=== PATIENT | female | born 2005 | race Caucasian/White ===

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

== ENCOUNTER 2023-04-17 04:20 | Emergency (ER) | payer OTHER ==
[~2023-04-17] VITALS: Ht 175.3 cm; Wt 59.0 kg
[2023-04-17] MEDS ORDERED: SERT25 PO (04:57)
[2023-04-17 05:36] LABS: BASOPHILS ABSOLUTE AUTO 0.08 K/mm3 (0.00-0.23); BASOPHILS PERCENT AUTO 1 % (0-2); EOSINOPHILS ABSOLUTE AUTO 0.06 K/mm3 (0.00-0.68); EOSINOPHILS PERCENT AUTO 1 % (0-6); Hematocrit 36.4 % (33.0-51.0); Hemoglobin 11.8 g/dL (11.5-16.0); IMMATURE GRAN ABSOLUTE AUTO 0.03 K/mm3 (0.00-0.10); IMMATURE GRAN PERCENT AUTO 0 % (0-1); LYMPHOCYTES PERCENT AUTO 11 % (21-46); MONOCYTES ABSOLUTE AUTO 0.68 K/mm3 (0.16-1.47); MONOCYTES PERCENT AUTO 6 % (4-13); Mean Corpuscular HGB 28.2 pg (26.0-34.0); Mean Corpuscular HGB Conc 32.4 g/dL (31.5-36.5); Mean Corpuscular Volume 87 fL (80-100); Mean Platelet Volume 11.9 fL (9.1-12.4); NEUTROPHILS ABSOLUTE AUTO 9.63 K/mm3 (1.96-9.15); NEUTROPHILS PERCENT AUTO 82 % (41-73); Platelet Count 186 K/mm3 (150-400); RDW Standard Deviation 47.6 fL (35.1-46.3); Red Blood Cell Count 4.19 M/mm3 (3.80-5.20); White Blood Cell Count 11.78 K/mm3 (4.00-11.30)
[2023-04-17 06:01] LABS: Thyroid Stimulating Hormone 1.2 uIU/mL (0.360-4.800)
[2023-04-17 06:03] LABS: Bun/Creatinine Ratio 22.9 (12.0-20.0); Calcium, Blood 8.4 mg/dL (8.5-10.1); Creatinine, Blood 0.53 mg/dL (0.40-1.00); Potassium, Blood 4.9 mmol/L (3.5-5.5)
[2023-04-17 06:09] LABS: Influenza A, PCR NEGATIVE (NEGATIVE); Influenza B, PCR NEGATIVE (NEGATIVE); Resp Syncytial Virus, PCR NEGATIVE (NEGATIVE); SARS-Cov-2 (COVID-19) PCR, MMC NEGATIVE (NEGATIVE)
[2023-04-17 06:57] LABS: Source, Urine Clean Catch
[2023-04-17 07:11] LABS: Appearance, Urine Clear (Clear); Bilirubin, Urine Neg (Neg); Blood, Urine 4+ (Neg); Color, Urine Yellow (P-Yellow); Glucose Qualitative, Urine Neg (Neg); Ketones, Urine 1+ (Neg); Leukocyte Esterase, Urine Neg (Neg); Nitrite, Urine Neg (Neg); Protein, Urine Neg (Neg); Urobilinogen, Urine NORM (Normal)
[2023-04-17] MEDS ORDERED: TRAM50 PO (07:30)
[2023-04-17 07:31] LABS: U Amphetamine Screen Not Detected; U Barbituate Screen Not Detected; U Benzodiazapine Screen Not Detected; U Buprenorphine Screen Not Detected; U Cannabinoids Screen DETECTED; U Cocaine Screen Not Detected; U Methadone Screen Not Detected; U Methamphetamine Screen Not Detected; U Opiates Screen Not Detected; U Oxycodone Screen Not Detected; U Phencyclidine Screen Not Detected; U Propoxyphene Screen Not Detected
[2023-04-17 07:34] LABS: Bacteria Few /hpf; Mucus Light (0-Heavy); Squamous Epithelial Cells Rare /hpf (Few)
[2023-04-17] MEDS ORDERED: ONDA4ODT MM (08:35)
[2023-04-17 09:30] VITALS: BP 113/71
== END 2023-04-17 09:59 | disposition home or self-care (01) ==
LOC: ER 04:20
PROVIDERS: Emergency Medicine
DX: R11.2 Nausea with vomiting, unspecified (principal); F12.90 Cannabis use, unspecified, uncomplicated; E86.0 Dehydration; Z79.899 Other long term (current) drug therapy
CPT/HCPCS: 0241U; 80048; 81001; 82550; 84443; 84703; 85025; 93005; 93010; 96361; 96374; 96375; 99285-25; J0780; J1200; J7030

== ENCOUNTER 2024-09-06 21:34 | Observation (INO) | payer OTHER ==
[~2024-09-06] VITALS: Ht 172.7 cm; Wt 61.2 kg
[~2024-09-06 21:34] MED LIST changes: +SERT25 PO; +TRAM50 PO
[2024-09-06] MEDS ORDERED: Ziprasidone Mesylate 20 MG / Vial IM ONE (22:20)
[2024-09-06 23:09] LABS: BASOPHILS ABSOLUTE AUTO 0.09 K/mm3 (0.00-0.23); BASOPHILS PERCENT AUTO 1 % (0-2); EOSINOPHILS ABSOLUTE AUTO 0.36 K/mm3 (0.00-0.68); EOSINOPHILS PERCENT AUTO 4 % (0-6); Hematocrit 37.8 % (33.0-51.0); Hemoglobin 12.9 g/dL (11.5-16.0); IMMATURE GRAN ABSOLUTE AUTO 0.02 K/mm3 (0.00-0.10); IMMATURE GRAN PERCENT AUTO 0 % (0-1); LYMPHOCYTES ABSOLUTE AUTO 2.69 K/mm3 (0.84-5.20); LYMPHOCYTES PERCENT AUTO 26 % (21-46); MONOCYTES ABSOLUTE AUTO 1.04 K/mm3 (0.16-1.47); MONOCYTES PERCENT AUTO 10 % (4-13); Mean Corpuscular HGB 29.8 pg (26.0-34.0); Mean Corpuscular HGB Conc 34.1 g/dL (31.5-36.5); Mean Corpuscular Volume 87 fL (80-100); Mean Platelet Volume 10.5 fL (9.1-12.4); NEUTROPHILS ABSOLUTE AUTO 6.09 K/mm3 (1.96-9.15); NEUTROPHILS PERCENT AUTO 59 % (41-73); Platelet Count 207 K/mm3 (150-400); RDW Coefficient Variation 12.5 % (11.7-14.2); RDW Standard Deviation 40.1 fL (35.1-46.3); Red Blood Cell Count 4.33 M/mm3 (3.80-5.20); White Blood Cell Count 10.29 K/mm3 (4.00-11.30)
[2024-09-06] MEDS ORDERED: OLANZapine ODT 5 MG Tab PO ONE (23:15)
[2024-09-06 23:18] LABS: Source, Urine Clean Catch
[2024-09-06 23:24] LABS: Bilirubin, Urine Neg (Neg); Blood, Urine Neg (Neg); Glucose Qualitative, Urine Neg (Neg); Ketones, Urine 1+ (Neg); Leukocyte Esterase, Urine Neg (Neg); Nitrite, Urine Neg (Neg); Protein, Urine 1+ (Neg); Specific Gravity, Urine 1.015 (1.003-1.022); Urobilinogen, Urine 1+ (Normal)
[2024-09-06 23:29] LABS: Salicylate <1.7 mg/dL (2.8-20.0)
[2024-09-06 23:30] LABS: Acetaminophen, Random <2.0 ug/mL (10.0-30.0); Alanine Aminotransfer (ALT/SGP 17 U/L (12-78); Albumin, Blood 4.4 g/dL (3.4-5.0); Albumin/Globulin Ratio 1.4 (0.8-1.8); Alk Phos 78 U/L (50-136); Anion Gap 10 mmol/L (3-11); Aspartate Aminotrans (AST/SGOT 18 U/L (12-37); Bilirubin, Total 1.4 mg/dL (0.1-1.0); Blood Urea Nitrogen 13 mg/dL (8-24); Bun/Creatinine Ratio 16.8 (12.0-20.0); CO2, Blood 24 mmol/L (21-32); Calcium, Blood 9.3 mg/dL (8.5-10.1); Chloride, Blood 107 mmol/L (98-108); Creatinine, Blood 0.78 mg/dL (0.40-1.00); Ethanol (Alcohol), Blood, Med <3 mg/dL; Globulin, Blood 3.2 g/dL (2.2-4.0); Glomerular Filtration Rate 111 (60-); Glucose, Blood 92 mg/dL (70-99); Sodium, Blood 138 mmol/L (136-145); Total Protein, Blood 7.6 g/dL (6.4-8.2)
[2024-09-06 23:42] LABS: Appearance, Urine Clear (Clear); Color, Urine Yellow (P-Yellow)
[2024-09-06 23:44] LABS: U Amphetamine Screen Not Detected; U Barbituate Screen Not Detected; U Benzodiazapine Screen Not Detected; U Buprenorphine Screen Not Detected; U Cannabinoids Screen DETECTED; U Cocaine Screen Not Detected; U Methadone Screen Not Detected; U Methamphetamine Screen Not Detected; U Opiates Screen Not Detected; U Oxycodone Screen Not Detected; U Phencyclidine Screen Not Detected
[2024-09-06] MEDS ORDERED: ZOLOFT50 MG PO (23:44)
[2024-09-07 12:00] VITALS: BP 140/86
== END 2024-09-07 12:20 | disposition other institution (70) ==
LOC: ER 21:34 → EOR 21:35
PROVIDERS: ADMIT Emergency Medicine
DX: F33.2 Major depressive disorder, recurrent severe without psychotic features (principal); R45.851 Suicidal ideations; F17.290 Nicotine dependence, other tobacco product, uncomplicated; Z79.899 Other long term (current) drug therapy
CPT/HCPCS: 80053; 80320; 81025; 85025; 93005; 93010; 99285-25; A9270; G0378; G0480; J3486

== ENCOUNTER 2024-09-07 09:32 | Inpatient (IN) | payer OTHER ==
[~2024-09-07] VITALS: Ht 172.7 cm; Wt 56.7 kg
[~2024-09-07 09:32] MED LIST changes: +ZOLOFT50 MG PO
[2024-09-07] MEDS ORDERED: Polyethylene Glycol 3350 17 gm PO PRN (10:55)
[2024-09-07] MEDS ORDERED: Aluminum Hydroxide 320MG/5ML 473 ML PO PRN (11:00)
[2024-09-07] MEDS ORDERED: Calcium Carbonate 500 MG Tab Chew PO PRN (11:00)
[2024-09-07] MEDS ORDERED: Ibuprofen 600 MG Tab PO PRN (11:00)
[2024-09-07] MEDS ORDERED: Acetaminophen 325 MG TABLET PO PRN (11:00)
[2024-09-07] MEDS ORDERED: TraZODone HCl 50 MG Tab PO PRN (11:00)
[2024-09-07] MEDS ORDERED: HydrOXYzine Pamoate 50 MG Cap PO PRN (11:00)
[2024-09-07] MEDS ORDERED: OLANZapine ODT 10 MG Tab MM PRN (11:00)
[2024-09-07] MEDS ORDERED: Melatonin 3 MG Tab PO PRN (11:00)
[2024-09-07] MEDS ORDERED: Ondansetron 4 MG SoluTab MM PRN (11:10)
[2024-09-07 12:40] VITALS: BP 114/81
[2024-09-07 13:05] VITALS: BP 114/81
--- NOTE | 2024-09-07 14:39 | NUR ---
ADMISSION NOTE: REPORT TAKEN FROM BONIFACIO RN/ER. SHE WAS BROUGHT INTO THE ER WITH SI, IT WAS REPORTED THAT SHE HAD A PLAN OF CRASHING HER CAR INTO A DITCH (WHICH SHE DENIED DURING ADMISSION INTERVIEW). 12:24 PT WAS ADMITTED TO [facility] FROM [facility] ER SHE REPORTED "I HAVE DEPRESSION, BORDERLINE PERSONALITY DISORDER." HER GRANDMOTHER SAID THAT PT, "HAS A OVARIAN CYST WHICH SHE FEELS SOMETIMES AFFECTS HER EMOTIONS AROUND HER PERIOD TIME." PT BECAME VERY TEARFUL REGARDING THE 5 DAY HOLD. "THEY SAID IT WAS A 3 DAY HOLD." SHE WAS ADVISED THAT HER HOLD WILL BE UP WEDNESDAY, SEPTEMBER 11, 2024 AT 17:00. SHE IS PRESENTLY RESTING IN BED.
--- NOTE | 2024-09-07 18:07 | NUR ---
PT ATE HER DINER IN THE VISITOR ROOM AND VISITED WITH HER GRANDMA AND HER AUNT. SHE WAS GLAD TO SEE THEM AND FOR THE VISIT BUT IS STILL TEARFUL REGARDING THE 5 DAY HOLD. SHE IS RESTING ON HER BED.
[2024-09-07 20:34] VITALS: BP 116/79
[2024-09-07] MEDS ORDERED: ARIPiprazole 5 MG Tab PO SCH (21:00)
--- NOTE | 2024-09-07 22:49 | NUR ---
UPDATE HOSPITALIST BONIFACIO NOTIFIED D/T PT'S POTASSIUM OF 3.O, W/ NO NEW ORDERS. DR VAZQUEZ CALLED NOTIFYING CHARGE FOR LAB DRAW BY MIDNIGHT. NO OTHER ORDERS AT THIS TIME.
[2024-09-07 23:46] LABS: Anion Gap 11 mmol/L (3-11); Blood Urea Nitrogen 14 mg/dL (8-24); Bun/Creatinine Ratio 19.6 (12.0-20.0); CHOL/HDL RATIO 2.2; CO2, Blood 24 mmol/L (21-32); Calcium, Blood 9.2 mg/dL (8.5-10.1); Chloride, Blood 107 mmol/L (98-108); Cholesterol 109 mg/dL (50-200); Creatinine, Blood 0.71 mg/dL (0.40-1.00); Glomerular Filtration Rate 125 (60-); Glucose, Blood 78 mg/dL (70-99); HDL Cholesterol 49 mg/dL (>39); LDL/HDL RATIO 1.1; Low Density Lipoprotein Chol 53 mg/dL (0-110); Magnesium, Blood 2.2 mg/dL (1.6-2.4); Potassium, Blood 3.8 mmol/L (3.5-5.5); Sodium, Blood 138 mmol/L (136-145); Thyroid Stimulating Hormone 0.524 uIU/mL (0.360-4.800); Triglycerides 36 mg/dL (30-140); Very Low Density Lipoprot Chol 7 mg/dL (6-28)
--- NOTE | 2024-09-08 05:28 | NUR ---
SHIFT SUMMARY PT RESTED IN BED/SLEPT T/O WHOLE SHIFT. AT START OF SHIFT PT DECLINED GOING TO SNACK. PT DENIED SI, HI, AVTH. POTASSIUM NOTED TO BE 3.0 AND WAS NOT ABLE TO FIND ANY POTTASIUM REPLACEMENT ORDERED SO DR ZAMARRIPA NOTIFIED/HOSPITALIST NOTIFIED (SEE PREVIOUS NOTE). NO ACUTE EVENTS OVERNIGHT.
--- NOTE | 2024-09-08 07:54 | NUR ---
SHIFT ASSESSMENT: PT REPORTED THAT SHE VOMITED THIS MORNING...ZOFRAN ODT 4MG GIVEN. SHE DENIED SI, HI AND AVH. PT REPORTED FEELING "OK" ABOUT THE DAY. AFFECT WAS EUTHYMIC. SHE IS PRESENTLY RESTING IN BED WITH 15 MINUTE OBSERVATIONS.
[2024-09-08 08:11] VITALS: BP 113/59
[2024-09-08] MEDS ORDERED: Sertraline HCl 100 MG Tab PO SCH (09:00)
[2024-09-08] MEDS ORDERED: Multivitamins 1 Tab PO SCH (09:00)
[2024-09-08 13:28] VITALS: BP 131/91
--- NOTE | 2024-09-08 14:00 | NUR ---
PT ATTENDED GROUPS AND REPORTED THAT THE NAUSEA WAS RESOLVED, THEN AT 1221 SHE BEGAN VOMITING AGAIN AND WAS GIVEN ZOFRAN 4MG WHICH SHE IMMEDIATELY THRW UP. VS B/P1, PULSE 86, TEMP 98.4, BIOX 100%. ZOFRAN 4MG GIVEN AT 1339 WITH GOOD RESULTS SO FAR.
--- NOTE | 2024-09-08 17:15 | NUR ---
PATIENT CONTINUES TO HAVE INTERMITTENT VOMITTING AND HEAVING WITH STOMACH ACID. THE PATIENT DENIES ANY DRUG USE, EXCEPT FOR THC AT HOME. PATIENTS VITAL SIGNS ARE STABLE AND WITHIN NORMAL LIMITS. (SEE VS). BS X4Q. ALTHOUGH SLOWER THAN EXPECTED WITH THE NAUSEA. PAIN IS PRESENT IN THE MID ABDOMIN, DESCRIBED SHARP AND POSSIBLY RADIATING SOMEWHAT. PATIENT WAS GIVEN A DOSE OF 4MG ZOFRAN ODT AT APPROX 1715, BEFORE DINNER TRAYS RECOMMENDED BY DR. FRANCIS. A DINNER TRAY WAS ORDERED WITH REQUESTED SPRITE. PATIENT IS CURRENTLY LYING IN HER ROOM, RESTING AND DOES PLAN TO TRY TO DRINK AND EAT A LITTLE.
--- NOTE | 2024-09-08 18:02 | NUR ---
PT SOILED HERSELF WHILE VOMITING WHILE VISITING WITH HER GRANDMA AND AUNT. THIS CLERICAL CLERK TOOK HER TO HER ROOM AND STAYED WITH HER WHILE SHE SHOWERED DUE TO "WEAKNESS." BEFORE HER SHOWER SHE HAD SEVERAL MORE DIARRHEA EPISODES. SHE SHOWERED AND IS NOW RESTING IN BED. HER SKIN IS PALE.
[2024-09-08] MEDS ORDERED: Prochlorperazine Maleate 5 MG Tab PO PRN (18:05)
--- NOTE | 2024-09-08 18:42 | NUR ---
After patient had taken her last Zofran, she continued to have N&V, She soiled her pants with BM during the visit with her Grandma. Provider was notoified and new orders were given. DC Zofran, and start Compazine 10 mg PO [id number] PRN, if the patient is not able to tolerate the oral Compazine, 10 mg IM [id number] PRN can be given, the other option would be Compazine 25 mg PRN Q [address] Tee. Patient first dose of Compazine was given approx 1834.
[2024-09-08 19:35] VITALS: BP 106/61
[2024-09-08] MEDS ORDERED: ARIPiprazole 10 MG Tab PO SCH (21:00)
--- NOTE | 2024-09-09 04:24 | NUR ---
SHIFT SUMMARY: PATIENT C/O FEELING NAUSEATED AT THE BEGINNING OF THE SHIFT. SHE HAD BEEN GIVEN ZOFRAN X3 WITH LITTLE TO NO EFFECT ON DAY SHIFT, AND HAD JUST BEEN GIVEN SOME COMPAZINE BEFORE THE BEGINNING OF EVENING SHIFT. SHE STATED THAT IT WAS "HELPFUL" BUT "I'M VERY SLEEPY". SHE DECLINED OFFER OF SNACK AND WRAP UP GROUP. SHE WAS ABLE TO SIP SOME WATER AND TAKE EVENING MEDICATIONS, AND LATER STATED THAT THEY STAYED DOWN. SHE HAD NO STATED ISSUES OR CONCERNS. SHE WAS DRY HEAVING LATER IN SHIFT, BUT STATED, "I'M OKAY". SHE WAS INFORMED THAT SHE CAN HAVE MORE COMPAZINE, BUT DECLINED IT THIS SHIFT. SHE DENIED THOUGHTS OF SUICIDAL IDEATION OR SELF HARMING THIS SHIFT. SHE MOSTLY LAY IN BED WITH EYES CLOSED AND RESPIRATIONS CONFIRMED. CONTINUING TO MONITOR FOR SAFETY AND S/SX NAUSEA WITH Q15 MINUTE CHECKS.
[2024-09-09] MEDS ORDERED: Prochlorperazine Edisylate 10 mg Vial IM PRN (09:05)
[2024-09-09] MEDS ORDERED: Lactated Ringer's 1,000 ML IV ONE (11:55)
[2024-09-09 12:28] LABS: Albumin, Blood 4.6 g/dL (3.4-5.0); Albumin/Globulin Ratio 1.2 (0.8-1.8); Bilirubin, Total 2.1 mg/dL (0.1-1.0); Bun/Creatinine Ratio 16.8 (12.0-20.0); Calcium, Blood 10.1 mg/dL (8.5-10.1); Creatinine, Blood 0.59 mg/dL (0.40-1.00); Globulin, Blood 3.7 g/dL (2.2-4.0); Potassium, Blood 3.7 mmol/L (3.5-5.5); Total Protein, Blood 8.3 g/dL (6.4-8.2)
--- NOTE | 2024-09-09 18:02 | NUR ---
SHIFT SUMMARY PT A/O X4; PLEASANT AND COOPERATIVE WITH CARE. SHE DENIES SI, HI, OR HALLUCINATIONS. SHE CONTINUES TO BE NAUSEOUS AND THREW UP TWICE THIS SHIFT. SHE WAS UNABLE TO TOLERATE PO MEDICATIONS AND GIVEN IV COMPAZINE FOR NAUSEA. PT EVALUATED BY HOSPITALIST AND WAS TAKEN TO ED FAST TRACK FOR IV HYDRATION. PT HAD A VISIT WITH AUNT AND GRANDMOTHER AND RECEIVED SOME UNFORTUNATE NEWS DURING VISIT, BUT PT TOLERATED IT WELL. SHE ATTENDED ONE MEAL AND UNABLE TO ATTEND GROUPS THIS SHIFT DUE TO BEING SICK. SHE CONTINUES TO BE MONITORED VIA Q15 ROUNDING FOR WELLNESS AND SAFETY.
[2024-09-09 20:13] VITALS: BP 138/88
--- NOTE | 2024-09-10 04:19 | NUR ---
SHIFT SUMMARY: PATIENT WAS IN HER ROOM RESTING QUIETLY WITH EYES CLOSED AT THE BEGINNING OF THE SHIFT. SHE GOT UP TO PARTICIPATE IN 2000 SNACK AND WRAP UP GROUP. SHE DECLINED TO FILL OUT HER WRAP UP PAPER, BUT DID HAVE APPLE JUICE X2. SHE STATED THAT HER NAUSEA WAS "MUCH BETTER". SHE DENIED THOUGHTS OF SELF HARMING OR SUICIDAL IDEATION. SHE WAS COMPLIANT WITH MEDICATION ADMINISTRATION, AND STATED THAT SHE WAS ABLE TO KEEP THE MEDICATIONS DOWN. AFTER SNACK, SHE WENT TO BED WHERE SHE WAS NOTED TO BE RESTING QUIETLY WITH EYES CLOSED AND RESPIRATIONS CONFIRMED FOR THE REMAINDER OF THE SHIFT. CONTINUING TO MONITOR FOR SAFETY WITH Q15 MINUTE CHECKS.
[2024-09-10] MEDS ORDERED: Sertraline HCl 100 MG Tab PO SCH (09:00)
[2024-09-10] MEDS ORDERED: Nicotine 21 MG PATCH TOP SCH (10:18)
--- NOTE | 2024-09-10 12:18 | NUR ---
SHIFT ASSESSMENT: PT DENIED SI, HI AND AVH, SHE REPORTED "A LITTLE ANXIETY FROM BEING SICK." HER "TUMMY HURTS FROM THE NAUSEA." HER MOOD IS, "I'M OK." HER AFFECT IS EUTHYMIC. SHE REMAINS IN BED, DUE TO NAUSEA. PT IS COOPERATIVE WITH CARE.
--- NOTE | 2024-09-10 13:35 | NUR ---
PT VOMITED AT 12:30, TUMS AND CHAMOMILE TEA WERE GIVEN. SO FAR SHE HAS KEPT IT DOWN.
--- NOTE | 2024-09-10 14:14 | NUR ---
IMPORTANT DISCHARGE INFORMATION PATIENT'S AUNT (MIGUEL) IS COMING TO GET HER ON Saturday09/11/24 AROUND 1PM. HER PHONE NUMBER IS PHARMACY: [facility] FOLLOW UP APPOINTMENT WITH PCP: 09/14/24 AT 10:30 AM WITH
--- NOTE | 2024-09-10 15:02 | NUR ---
PT APPEARS TO BE SLEEPING. 15 MINUTE OBSERVATION ROUNDS CONTINUE.
--- NOTE | 2024-09-10 17:15 | NUR ---
PT TRIED TO EAT APPLESAUCE AND VOMITED TO AND STOMACH CONTENTS INTO THE WASTEPAPER CAN. COMPAZINE 10MG PO GIVEN, SHE REPORTED THAT THE CHAMOMILE TEA STAYED DOWN EARLIER SO SHE WAS GIVEN ANOTHER CUP. PT RESTING IN BED AT THIS TIME.
[2024-09-10 19:19] VITALS: BP 127/86
--- NOTE | 2024-09-11 04:12 | NUR ---
SHIFT SUMMARY: PATIENT WAS IN HER BED AT THE BEGINNING OF THE SHIFT. SHE DID NOT RESPOND TO A SOFT CALLING OF HER NAME. SHE WAS AWAKENED JUST BEFORE SNACK TIME AND STATED THAT SHE HAD NAUSEA AND DID NOT WANT TO JOIN THE OTHERS. SHE DID DRINK ABOUT 480 ML WATER THIS SHIFT. SHE DENIED THOUGHTS OF SELF HARMING OR SUICIDAL IDEATION. SHE ADMITTED TO 5/10 NAUSEA LEVEL, AND WANTED TO TRY TO "STAVE IT OFF" HERSELF. SHE AWOKE IN THE MIDDLE OF THE NIGHT, AND HAD SOME VOMITING. AT HER REQUEST, SHE WAS GIVEN COMPAZINE PO, WHICH SHE HELD DOWN FOR ABOUT 20-30 MINUTES. SHE THEN VOMITED AGAIN AND WAS UNABLE TO STATE WHETHER OR NOT SHE VOMITED THE MEDICATIONS. SHE REQUESTED TUMS, WHICH WAS GIVEN WITH GOOD EFFECT. SHE RATED HER NAUSEA AT A CONTINUOUS 5/10. SHE STATED THAT SHE STARTED HER MENSES AT ABOUT 0230 THIS MORNING. SHE MOSTLY RESTED WITH EYES CLOSED AND RESPIRATIONS CONFIRMED DURING THIS SHIFT. CONTINUING TO MONITOR FOR SAFETY WITH Q15 MINUTE CHECKS.
--- NOTE | 2024-09-11 10:45 | NUR ---
IMPORTANT HOSPITAL APPOINTMENT INFORMATION Patient scheduled to meet with Brent Mccabe from the [facility] crisis team for post-hospital follow up on September at 1000 // [address] [place], [place] [address] // [phone] added appointment information to patient's discharge packet
[2024-09-11] MEDS ORDERED: SERT50 PO (13:46)
[2024-09-11] MEDS ORDERED: ABILIFY MYCITE10 M2 PO (13:47)
[2024-09-11] MEDS ORDERED: HYDPAM50 PO (13:47)
[2024-09-11] MEDS ORDERED: NICO21TP TOP (13:48)
[2024-09-11] MEDS ORDERED: Prochlorperazin10 MG PO (13:50)
--- NOTE | 2024-09-11 17:11 | NUR ---
DISCHARGE SUMMARY PT DC FROM [facility] AT 1702. PT STATED UNDERSTANDING OF DISCHARGE SUMMARY AND SCHEDULED APPOINTMENTS, SHE RECEIVED ALL OF HER BELONGINGS AND SIGNED FOR THEM. SHE WAS ESCORTED TO THE EXIT BY THIS RN, AUNT WAS WAITING FOR HER OUTSIDE OF BUILDING.
== END 2024-09-11 17:02 | disposition home or self-care (01) | DRG 885 ==
LOC: BHU 09:32
PROVIDERS: Hospitalist; Internal Medicine; ADMIT Student in an Organized Health Care Education/Training Program
DX: F33.3 Major depressive disorder, recurrent, severe with psychotic symptoms (principal); R45.851 Suicidal ideations; E87.6 Hypokalemia; F12.23 Cannabis dependence with withdrawal; J45.909 Unspecified asthma, uncomplicated; R11.15 Cyclical vomiting syndrome unrelated to migraine; Z79.899 Other long term (current) drug therapy
CPT/HCPCS: 36415; 80048; 80053; 80061; 83036; 83735; 84443; A9270; J0780; J7120; Q0164

== ENCOUNTER 2024-09-09 12:16 | Emergency (ER) | payer OTHER ==
[~2024-09-09] VITALS: Ht 172.7 cm; Wt 59.0 kg
[2024-09-09 14:17] VITALS: BP 144/84
[2024-09-09] MEDS ORDERED: Lactated Ringer's 1,000 ML IV SCH (14:25)
== END 2024-09-09 15:57 | disposition home or self-care (01) ==
LOC: ER 12:16
DX: R11.15 Cyclical vomiting syndrome unrelated to migraine (principal); F12.90 Cannabis use, unspecified, uncomplicated; Z79.899 Other long term (current) drug therapy
CPT/HCPCS: 99283; J7120

== ENCOUNTER 2024-09-13 08:57 | Emergency (ER) | payer OTHER ==
[~2024-09-13] VITALS: Ht 172.7 cm; Wt 56.7 kg
[~2024-09-13 08:57] MED LIST changes: +ABILIFY MYCITE10 M2 PO; +HYDPAM50 PO; +NICO21TP TOP; +Prochlorperazin10 MG PO; +SERT50 PO
[2024-09-13] MEDS ORDERED: Ondansetron HCl 2 MG / ML 2ML Vial IV PRN (09:35)
[2024-09-13 10:14] LABS: Albumin/Globulin Ratio 1.2 (0.8-1.8); Bun/Creatinine Ratio 18.3 (12.0-20.0); Calcium, Blood 9.6 mg/dL (8.5-10.1); Creatinine, Blood 0.66 mg/dL (0.40-1.00)
[2024-09-13 11:13] LABS: BASOPHILS ABSOLUTE AUTO 0.07 K/mm3 (0.00-0.23); BASOPHILS PERCENT AUTO 1 % (0-2); EOSINOPHILS PERCENT AUTO 1 % (0-6); Hematocrit 41.4 % (33.0-51.0); Hemoglobin 13.9 g/dL (11.5-16.0); IMMATURE GRAN ABSOLUTE AUTO 0.03 K/mm3 (0.00-0.10); IMMATURE GRAN PERCENT AUTO 0 % (0-1); LYMPHOCYTES PERCENT AUTO 14 % (21-46); MONOCYTES ABSOLUTE AUTO 1.42 K/mm3 (0.16-1.47); MONOCYTES PERCENT AUTO 13 % (4-13); Mean Corpuscular HGB 28.9 pg (26.0-34.0); Mean Corpuscular HGB Conc 33.6 g/dL (31.5-36.5); Mean Corpuscular Volume 86 fL (80-100); Mean Platelet Volume 10.4 fL (9.1-12.4); NEUTROPHILS ABSOLUTE AUTO 7.84 K/mm3 (1.96-9.15); NEUTROPHILS PERCENT AUTO 72 % (41-73); Platelet Count 190 K/mm3 (150-400); RDW Coefficient Variation 12.2 % (11.7-14.2); RDW Standard Deviation 38.3 fL (35.1-46.3); Red Blood Cell Count 4.81 M/mm3 (3.80-5.20); White Blood Cell Count 10.96 K/mm3 (4.00-11.30)
[2024-09-13 11:37] LABS: Source, Urine Clean Catch
[2024-09-13 11:43] LABS: Appearance, Urine Clear (Clear); Bilirubin, Urine Neg (Neg); Blood, Urine 4+ (Neg); Color, Urine Yellow (P-Yellow); Glucose Qualitative, Urine Neg (Neg); Ketones, Urine 4+ (Neg); Leukocyte Esterase, Urine Neg (Neg); Nitrite, Urine Neg (Neg); Protein, Urine 2+ (Neg); Urobilinogen, Urine 2+ (Normal)
[2024-09-13 11:49] LABS: Amorphous Light (0-Heavy); Bacteria Few /hpf; Red Blood Cells, Urine 0-2 /hpf (0-2); Squamous Epithelial Cells Few /hpf (Few); White Blood Cells, Urine 0-2 /hpf (0-5)
[2024-09-13] MEDS ORDERED: Potassium Chl 20MEQ/Water100ML 100 ML IV ONE (12:10)
[2024-09-13] MEDS ORDERED: Potassium Chloride 20 MEQ TabCR PO ONE (12:10)
[2024-09-13] MEDS ORDERED: NS 1,000 ML IV SCH (12:30)
[2024-09-13] MEDS ORDERED: Haloperidol Lactate Inj. 5 MG/ML Injection IV ONE (12:35)
[2024-09-13] MEDS ORDERED: FentaNYL Citrate 50 MCG/ML 2 ML Injection IV ONE (12:35)
[2024-09-13] MEDS ORDERED: K-TAB ER20 ME1 PO (14:38)
[2024-09-13 15:15] VITALS: BP 128/83
== END 2024-09-13 15:30 | disposition home or self-care (01) ==
LOC: ER 08:57
PROVIDERS: Student in an Organized Health Care Education/Training Program
DX: N83.202 Unspecified ovarian cyst, left side (principal); E87.6 Hypokalemia; E87.1 Hypo-osmolality and hyponatremia; E87.8 Other disorders of electrolyte and fluid balance, not elsewhere classified; R82.4 Acetonuria; R80.9 Proteinuria, unspecified; R31.9 Hematuria, unspecified; F17.290 Nicotine dependence, other tobacco product, uncomplicated; Z79.899 Other long term (current) drug therapy
CPT/HCPCS: 71046; 74177; 76830; 76857; 80053; 81001; 81025; 83690; 84484; 84703; 85025; 93005; 93010; 96365-59; 96366; 96375; 99284-25; A9270; J1630; J2405; J3010; J3480; J7030; Q9967

== ENCOUNTER → 2024-09-19 | Outpatient (CLI) | payer OTHER ==
[~2024-09-19] MED LIST changes: +K-TAB ER20 ME1 PO
[2024-09-19 13:26] LABS: BASOPHILS PERCENT AUTO 1 % (0-2); EOSINOPHILS ABSOLUTE AUTO 0.08 K/mm3 (0.00-0.68); EOSINOPHILS PERCENT AUTO 1 % (0-6); Hematocrit 46.5 % (33.0-51.0); IMMATURE GRAN ABSOLUTE AUTO 0.03 K/mm3 (0.00-0.10); IMMATURE GRAN PERCENT AUTO 0 % (0-1); LYMPHOCYTES ABSOLUTE AUTO 1.88 K/mm3 (0.84-5.20); LYMPHOCYTES PERCENT AUTO 17 % (21-46); MONOCYTES ABSOLUTE AUTO 1.04 K/mm3 (0.16-1.47); MONOCYTES PERCENT AUTO 10 % (4-13); Mean Corpuscular HGB 28.9 pg (26.0-34.0); Mean Corpuscular HGB Conc 34.4 g/dL (31.5-36.5); Mean Corpuscular Volume 84 fL (80-100); Mean Platelet Volume 10.1 fL (9.1-12.4); NEUTROPHILS ABSOLUTE AUTO 7.86 K/mm3 (1.96-9.15); NEUTROPHILS PERCENT AUTO 72 % (41-73); Platelet Count 282 K/mm3 (150-400); RDW Coefficient Variation 12.4 % (11.7-14.2); RDW Standard Deviation 37.8 fL (35.1-46.3); Red Blood Cell Count 5.53 M/mm3 (3.80-5.20); White Blood Cell Count 10.99 K/mm3 (4.00-11.30)
[2024-09-19 13:38] LABS: Albumin, Blood 5.4 g/dL (3.4-5.0); Albumin/Globulin Ratio 1.3 (0.8-1.8); Bilirubin, Total 2.6 mg/dL (0.1-1.0); Bun/Creatinine Ratio 15.3 (12.0-20.0); Calcium, Blood 10.1 mg/dL (8.5-10.1); Creatinine, Blood 0.85 mg/dL (0.40-1.00); Globulin, Blood 4.2 g/dL (2.2-4.0); Potassium, Blood 3.1 mmol/L (3.5-5.5); Total Protein, Blood 9.6 g/dL (6.4-8.2)
== END | disposition home or self-care (01) ==
LOC: LAB 13:22 → LAB SHORT 13:22
PROVIDERS: Physician Assistant
DX: R11.2 Nausea with vomiting, unspecified (principal); R17 Unspecified jaundice
CPT/HCPCS: 80053; 82248; 83690; 85025